=== PATIENT | female | born 1965 | race Caucasian/White ===

== ENCOUNTER 2024-10-17 19:27 | Inpatient (IN) | payer MEDICAID ==
[~2024-10-17] VITALS: Ht 160 cm; Wt 52.6 kg
[2024-10-17] MEDS ORDERED: TDAP DIPH,PERTUSS,TET VAC/PF 0.5 ML DISP.SYRIN IM ONE ×2 (20:04)
[2024-10-17] MEDS ORDERED: KETOROLAC TROMETHAMINE 30 MG INJ ONE (20:06)
[2024-10-17 20:12] LABS: BASOPHILS % (AUTO) 1.1 % (0.0-2.0); EOSINOPHILS # (AUTO) 0.1 K/uL (0.0-0.7); EOSINOPHILS % (AUTO) 2.3 % (0.0-7.0); HEMATOCRIT 35.1 % (31.2-41.9); HEMOGLOBIN 11.8 g/dL (10.9-14.3); LYMPHOCYTES # (AUTO) 1.3 K/uL (0.8-4.8); LYMPHOCYTES % (AUTO) 31.6 % (20.5-51.5); MEAN CORPUSCULAR HGB CONC 34 g/dL (32.3-35.6); MEAN CORPUSCULAR VOLUME 95.2 fL (75.5-95.3); MONOCYTES # (AUTO) 0.4 K/uL (0.1-1.30); MONOCYTES % (AUTO) 9.5 % (0.0-11.0); NEUTROPHILS # (AUTO) 2.2 K/uL (1.8-8.9); NEUTROPHILS % (AUTO) 55.5 % (38.5-71.5); PLATELET COUNT (AUTO) 205 K/uL (179-408); RED BLOOD CELL COUNT(AUTO) 3.69 MIL/uL (3.63-4.92); RED CELL DISTRIBUTION WIDTH 12.3 % (12.3-17.7)
[2024-10-17] MEDS: IV NS 1000 ML 1,000 ML IV ONE ×2 (20:18→21:14)
[2024-10-17] MEDS: KETOROLAC TROMETHAMINE 30 MG INJ IVP ONE (20:19)
[2024-10-17 20:21] LABS: DIFFERENTIAL COMMENT 1
[2024-10-17] MEDS: TDAP DIPH,PERTUSS,TET VAC/PF 0.5 ML DISP.SYRIN IM ONE (20:22)
[2024-10-17 20:26] LABS: CALCIUM 8.8 mg/dL (8.5-10.1); CREATININE 0.9 mg/dL (0.6-1.3); POTASSIUM 3.7 mmol/L (3.5-5.1)
[2024-10-17 20:39] LABS: ALBUMIN 3.5 g/dL (3.4-5.0); BILIRUBIN,TOTAL 0.3 mg/dL (0.2-1.0); TOTAL PROTEIN, SERUM 6.8 g/dL (6.4-8.2)
[2024-10-17] MEDS ORDERED: MAGNESIUM HYDROXIDE 30 ML LIQUID UDC PO PRN (23:00)
[2024-10-17 23:10] LABS: *BILIRUBIN,URIN NEGATIVE (NEGATIVE); *BLOOD, URINE NEGATIVE (NEGATIVE); *CLARITY,URINE CLEAR (CLEAR); *COLOR,URINE YELLOW (YELLOW); *KETONES,URINE NEGATIVE (NEGATIVE); *PROTEIN,URINE NEGATIVE (NEGATIVE); *UROBILINOGEN,URINE 0.2 E.U./dl (NORMAL); LEUKOCYTE ESTERASE ,URINE NEGATIVE (NEGATIVE); NITRITE, URINE NEGATIVE (NEGATIVE); UGLUCOSE NEGATIVE (NEGATIVE)
[2024-10-17 23:19] LABS: *AMPHETAMINE, URINE POSITIVE (NEGATIVE); *BARBITURATE, URINE NEGATIVE (NEGATIVE); *BENZODIAZEPINE, URINE NEGATIVE (NEGATIVE); *CANNABINOID, URINE POSITIVE (NEGATIVE); *COCCAINE, URINE NEGATIVE (NEGATIVE); *OPIATE, URINE NEGATIVE (NEGATIVE); *PHENCYCLIDINE SCREEN,URINE NEGATIVE (NEGATIVE); FENTANYL, URINE NEGATIVE (NEGATIVE)
[2024-10-18] MEDS: IV NS 1000 ML 1,000 ML IV SCH (01:10)
[2024-10-18] MEDS: ONDANSETRON 4 MG/2 ML VIAL IV PRN (01:26)
[2024-10-18 04:00] VITALS: BP 110/68
[2024-10-18 06:38] VITALS: BP 122/60
[2024-10-18 06:41] VITALS: BP 90/52
[2024-10-18 07:12] LABS: BASOPHILS % (AUTO) 0.8 % (0.0-2.0); EOSINOPHILS % (AUTO) 0.9 % (0.0-7.0); HEMOGLOBIN 12.2 g/dL (10.9-14.3); LYMPHOCYTES # (AUTO) 0.9 K/uL (0.8-4.8); LYMPHOCYTES % (AUTO) 15.7 % (20.5-51.5); MEAN CORPUSCULAR HEMOGLOBIN 32.4 uug (24.7-32.8); MEAN CORPUSCULAR HGB CONC 34 g/dL (32.3-35.6); MEAN CORPUSCULAR VOLUME 95.7 fL (75.5-95.3); MONOCYTES # (AUTO) 0.4 K/uL (0.1-1.30); MONOCYTES % (AUTO) 7.8 % (0.0-11.0); NEUTROPHILS # (AUTO) 4.2 K/uL (1.8-8.9); NEUTROPHILS % (AUTO) 74.8 % (38.5-71.5); PLATELET COUNT (AUTO) 173 K/uL (179-408); RED BLOOD CELL COUNT(AUTO) 3.76 MIL/uL (3.63-4.92); RED CELL DISTRIBUTION WIDTH 12.1 % (12.3-17.7); WHITE BLOOD COUNT (AUTO) 5.6 K/uL (3.8-11.8)
[2024-10-18 07:20] LABS: DIFFERENTIAL COMMENT 1
[2024-10-18 07:37] LABS: CALCIUM 8.4 mg/dL (8.5-10.1); CREATININE 0.8 mg/dL (0.6-1.3); MAGNESIUM 1.9 mg/dL (1.8-2.4); PHOSPHOROUS 3.6 mg/dL (2.5-4.9); POTASSIUM 4.2 mmol/L (3.5-5.1)
[2024-10-18 08:00] VITALS: BP 117/62; TEMP 98.2; O2SAT 99
[2024-10-18 08:06] LABS: THYROID STIMULATING HORMONE 0.598 mIU/mL (0.358-3.740)
[2024-10-18] MEDS ORDERED: PARO-142 PO (10:30)
[2024-10-18] MEDS: ACETAMINOPHEN 325 MG TABLET PO PRN (11:13)
[2024-10-18 13:00] VITALS: BP 116/65; TEMP 98.1; O2SAT 99
[2024-10-18 19:53] VITALS: BP 123/72; TEMP 97.2; O2SAT 98
[2024-10-19 07:37] VITALS: BP 117/69; TEMP 98; O2SAT 99
[2024-10-19] MEDS: NEOMY/BACITRAC/POLYMI OINT 28.35 GM TUBE TOP SCH (08:58)
[2024-10-19 09:35] VITALS: BP 127/59
[2024-10-19 09:36] VITALS: BP 130/76
[2024-10-19 09:37] VITALS: BP 126/70
[2024-10-19 11:38] VITALS: BP 117/66; TEMP 97.9; O2SAT 96
[2024-10-19 15:38] VITALS: BP 129/71; TEMP 98.2; O2SAT 99
== END 2024-10-19 15:35 | disposition home or self-care (01) | DRG 204 ==
LOC: ER 19:31 → TELE3 22:43 → MEDSURG3 10-19 08:45
DX: I95.1 Orthostatic hypotension (principal); G90.89 Other disorders of autonomic nervous system; F12.10 Cannabis abuse, uncomplicated; F15.10 Other stimulant abuse, uncomplicated; S01.01XA Laceration without foreign body of scalp, initial encounter; W19.XXXA Unspecified fall, initial encounter; Y92.89 Other specified places as the place of occurrence of the external cause; Z85.828 Personal history of other malignant neoplasm of skin; Z85.3 Personal history of malignant neoplasm of breast; Z79.899 Other long term (current) drug therapy
CPT/HCPCS: 36415; 70450; 71045; 83735; 84100; 84443; 84484; 85025; 90715; 93307; 93880; A4663; G0378; G0480; J1885; J2405; J7040